=== PATIENT | male | born 1975 | race African-American/Black ===

== ENCOUNTER 2017-01-04 15:00 | Inpatient (IN) | payer OTHER ==
[~2017-01-04] VITALS: Ht 185.4 cm; Wt 67.1 kg
--- NOTE | ~2017-01-04 | HP ---
Unit #: [id number] #: [id number] Patient: MARIAJOSE STARKS [id number] [place] [address] [id number] MR#: [id number] NAME: MARIAJOSE STARKS ROOM: P183 Age: 41 Sex: M Admission Date: 01/04/2017 : 1975 Attending Physician: Robert Canales M.D. Admitting Physician: Robert Canales M.D. Primary Care Physician: Primary Care Physician No HISTORY AND PHYSICAL HISTORY OF PRESENT ILLNESS The patient is a 41-year-old male admitted to [facility] on 01/04/2017 for polysubstance abuse including alcohol, heroin and cocaine. PAST MEDICAL HISTORY Polysubstance use. PAST SURGICAL HISTORY Inguinal hernia. SOCIAL HISTORY He is self-employed as a contractor. He lives alone. He smokes a third pack of cigarettes a day and uses alcohol, cocaine and heroin. FAMILY MEDICAL HISTORY Noncontributory. ALLERGIES No known drug allergies. CURRENT MEDICATIONS Patient is not on any home medications. REVIEW OF SYSTEMS CONSTITUTIONAL: No fever or chills. HEENT: Denies any sore throat, ear pain or runny nose. CARDIOVASCULAR: Denies chest pain, irregular heart rhythm or palpitations. CHEST: Denies shortness of breath or cough. No hemoptysis. GASTROINTESTINAL: Denies nausea, vomiting, diarrhea or chronic constipation. ENDOCRINE: Denies history of increased thirst or urination. No recent significant weight loss or gain. GENITOURINARY: Denies dysuria, frequency, or hematuria. SKIN: Denies any rashes. HEMATOLOGIC: Denies history of increased bleeding or bruising. MUSCULOSKELETAL: Denies any hot, swollen joints. No generalized muscle pain. NEUROLOGIC: Denies problems with vision or speech. No frequent, severe headaches. No numbness, tingling or weakness in any extremities. Denies loss of bladder or bowel control. PHYSICAL EXAM GENERAL: He is awake, alert and oriented in no acute distress. Unit #: [id number] #: [id number] Patient: MARIAJOSE STARKS VITAL SIGNS: Temperature 98.4, heart rate 69, respiration 16, blood pressure 100/63. HEIGHT: 5'1". WEIGHT: 148 pounds. SKIN: Warm and dry without rash or lesion. HEENT: Normocephalic. TMs not viewed. Oral and nasal passages clear. Conjunctivae clear. PERRLA. EOMs intact. NECK: Supple without lymphadenopathy or thyromegaly. HEART: Regular rate and rhythm without murmur. LUNGS: Clear. ABDOMEN: Soft, nontender. : Not done. EXTREMITIES: No evidence of cyanosis, clubbing or edema. Moves all without focal deficit. NEUROLOGICAL: Grossly within normal limits. Cranial Nerves: II: Visual ponce are intact. III, IV AND : Extraocular movements are intact. Pupils are equal, round and reactive to light. V: Facial sensation is grossly normal. VII: Facial movements and expression are normal. VIII: Auditory acuity grossly intact. IX, X: Uvula is midline. Phonation is normal. XI: Patient shrugs shoulders and turns head normally. XII: Tongue protrudes in the midline. Sensory and Motor Function: Sensory and motor sensation is grossly normal. Motor: moves all extremities well. IMPRESSION 1. Psychiatric admission. 2. Polysubstance abuse. 3. Nicotine dependence. RECOMMENDATIONS Psychiatric per psychiatrist. MEDICAL: No contraindication to participate in facility activities. MEDICAL PROGNOSIS Good. MEDICAL CONDITION Stable. Dictated by... Emily Barragan/martin TD: 01/06/2017 01:53 JOB #: [id number] Unit #: [id number] #: [id number] Patient: MARIAJOSE STARKS HISTORY AND PHYSICAL Page 1 of 1 X VINAY MAGALLANES APRN HISTORY AND PHYSICAL
--- NOTE | ~2017-01-04 | PN ---
Unit #: [id number] #: [id number] Patient: MARIAJOSE MONTANA [id number] [facility] [address] [place] [address] [id number] I MR#: [id number] NAME: MARIAJOSE MONTANA ROOM: P183 Age: 41 Sex: M Admission Date: 01/04/2017 : 1975 Attending Physician: Robert Canales M.D. Admitting Physician: Robert Canales M.D. Primary Care Physician: Primary Care Physician Eli SHRESTHA NOTES DATE 01/06/2017 DISCUSSION Mr. Montana is a 41-year-old, white male with substance abuse and mood disorder who was seen today and chart was reviewed and case was discussed with the staff. He was seen to be anxious, withdrawn, unkempt, disheveled in distress and discomfort and has not been functioning very well. He has been meanwhile, taking the medications and tolerating them fairly well. MENTAL STATUS EXAM Middle-aged male who was casually dressed with fair personal hygiene, appears to be in no acute distress or discomfort. He was awake and alert on interaction with intact orientation. His mood was anxious with congruent affect. His speech was slow and restricted in content. He denies any suicidal or homicidal ideation. Also, denies any auditory or visual hallucinations. His insight and judgement remains slightly impaired. TREATMENT PLAN 1. We will continue him on his current medications and treatment protocol. We will monitor his response to the medication and make further adjustments as needed. 2. We will continue to follow up. Dictated by... Jonathan Carrizales/martin TD: 01/07/2017 05:09 JOB #: [id number] Unit #: [id number] #: [id number] Patient: MARIAJOSE MONTANA KECIA PROGRESS NOTES Page 1 of 1 X Robert Canales MD PROGRESS NOTE
--- NOTE | ~2017-01-04 | PN ---
Unit #: [id number] #: [id number] Patient: MARIAJOSE MONTANA [id number] [facility] [address] [place] [address] [id number] I MR#: [id number] NAME: MARIAJOSE MONTANA ROOM: 83 Age: 41 Sex: M Admission Date: 01/04/2017 : 1975 Attending Physician: Robert Canales M.D. Admitting Physician: Robert Canales M.D. Primary Care Physician: Primary Care Physician Eli MCDONNELL PROGRESS NOTES DATE January 08, 2017 DISCUSSION Mr. Montana is a 41-year-old male, who was seen today and chart was reviewed and the case was discussed with the staff. He has been anxious, withdrawn, but reports doing much better and has been calm and cooperative with the treatment recommendations. He has been taking the medications and tolerating them fairly well with no reported side effects. MENTAL STATUS EXAMINATION Young white male, who was casually dressed with fair personal hygiene and appears to be in no acute distress or discomfort. He was awake and alert on interaction with intact orientation. His mood is anxious and depressed with a congruent affect. His speech is slow and goal-directed. He denies any suicidal or homicidal ideations, and also denies any auditory or visual hallucinations. His insight and judgment remain slightly impaired. TREATMENT PLAN 1. We will continue him on his current medications and treatment protocol, and will monitor his response to the medications, and make further adjustments as needed. 2. We will continue to followup. Dictated by... Jonathan Carrizales/lee ann TD: 01/08/2017 11:07 JOB #: [id number] Unit #: [id number] #: [id number] Patient: MARIAJOSE MONTANA PROGRESS NOTES Page 1 of 1 X Robert Canales MD PROGRESS NOTE
--- NOTE | ~2017-01-04 | PA ---
Unit #: [id number] #: [id number] Patient: MARIAJOSE MONTANA [id number] [facility] [address] [place] [address] [id number] I MR#: [id number] NAME: MARIAJOSE MONTANA ROOM: P183 Age: 41 Sex: M Admission Date: 01/04/2017 : 1975 Date of Assessment: Attending Physician: Robert Canales M.D. Admitting Physician: Robert Canales M.D. Primary Care Physician: Primary Care Physician No PSYCHIATRIC ASSESSMENT DATE OF SERVICE 01/05/2017. IDENTIFYING DATA Mr. Montana is a 41-year-old , disabled, male who is a resident of [place], [place], and was self-referred to the hospital on a voluntary basis. CHIEF COMPLAINT "I'm here for detox services." HISTORY OF PRESENT ILLNESS Mr. Montana is a 41-year-old male with history of substance abuse and dependence, who came to the hospital stating that he wants to request detox services and for the past several months, he has been consuming three 12-ounce beers and has been using 0.5 g of heroin and snorting 0.5 g of cocaine every other day and reports that he needs inpatient treatment for detox and had a COWS of 14 upon presentation indicating significant withdrawal from opioids. He stated that he has had several years of clean and sobriety and now he has been decompensating. He does report increasing depression, anxiety, significant consequences because of his addiction and feelings of hopelessness and helplessness, and inability to function, however, he denies any suicidal ideations, intent, or plan. SUBSTANCE ABUSE HISTORY The patient reports history of alcohol, cocaine, opioids, and benzodiazepine and currently alcohol and opioids appear to be his drug of choice. PAST PSYCHIATRIC HISTORY The patient has had history of inpatient psychiatric treatment at [facility] in the past. Review of the medical records indicate currently he is not active in any treatment program, is not seeing a psychiatrist, not taking any psychotropic medications. PAST MEDICAL HISTORY No acute or chronic medical illnesses. ALLERGIES No known medication allergies. CURRENT MEDICATIONS Unit #: [id number] #: [id number] Patient: MARIAJOSE MONTANA None. PERSONAL AND SOCIAL HISTORY A 41-year-old male who reports that he is single, unemployed, and essentially homeless and has poor social support system. MENTAL STATUS EXAMINATION Young male who was casually dressed with fair personal hygiene, appears to be in no acute distress or discomfort. He was awake and alert on interaction with intact orientation to time, place, and person. His mood was anxious and depressed with a congruent affect. His speech was slow and restricted in content. His thought processes were disorganized with some looseness of associations and flight of ideas and denies any suicidal ideations. His insight and judgment remain significantly impaired. DIAGNOSTIC IMPRESSION Psychiatric: Opioid dependence, moderate and acute withdrawals; alcohol dependence, moderate and acute withdrawals; opioid-induced mood disorder. Medical: None. Stressors: Moderate psychosocial stressors. TREATMENT PLAN 1. The patient has presented with a history of substance abuse and mood disorder, and has been decompensating and will need inpatient hospitalization for detoxification, and safety, and stabilization. We will start him back on his home medications. We will adjust the medications and monitor response. 2. Supportive therapy was provided to the patient. 3. Safe, structured, and nourishing environment will be provided. ESTIMATED LENGTH OF STAY 4 to 5 days. ABILITY TO HELP SELF Limited. WILLINGNESS TO HELP SELF The patient appears to be willing to help self. STRENGTHS 1. Communicative. 2. Cooperative. PROBLEMS 1. Chronic dysphoric symptoms. 2. Chronic chemical dependency. 3. Poor social support system. DISCHARGE CRITERIA This will be contingent upon the patient's ability to show resolution of his depression and anxiety and his ability to go through detox without having any significant withdrawal symptoms and his ability to stay safe to himself, particularly after discharge from the hospital. Dictated by... Robert Canales M.D. Unit #: [id number] #: [id number] Patient: MARIAJOSE MONTANA IAA/modl TD: 01/05/2017 16:16 JOB #: [id number] PSYCHIATRIC ASSESSMENT Page 1 of 1 X Robert Canales MD PSYCHIATRIC ASSESSMENT
--- NOTE | ~2017-01-04 | DS ---
Unit #: [id number] #: [id number] Patient: MARIAJOSE MONTANA [id number] [facility] [place] [address] [id number] I MR#: [id number] NAME: MARIAJOSE MONTANA ROOM: P183 Age: 41 Sex: M Admission Date: 01/04/2017 : 1975 Discharge Date: 01/09/2017 Attending Physician: Robert Canales M.D. Primary Care Physician: Primary Care Physician No DISCHARGE SUMMARY IDENTIFYING DATA Mr. Montana is a 41-year-old disabled male, who is a resident of [place], [place], and was self-referred to the hospital on a voluntary basis. HISTORY OF PRESENT ILLNESS Please see initial psychiatric evaluation for details. PAST PSYCHIATRIC HISTORY Please see initial psychiatric evaluation for details. PAST MEDICAL HISTORY Please see initial psychiatric evaluation for details. HOSPITAL COURSE The patient was admitted to the Adult Chemical Dependence unit at [facility] and was oriented to the hospital environment. Routine p.r.n. medications were initiated and she was back on his home medications. His home medications were adjusted and he was closely monitored. He was taking the medications regularly and was tolerating them fairly well and he was able to come out of the detox without any withdrawal symptoms and was willing to continue treatment on outpatient basis and as such it was decided that he will be kept on his current medications and will be discharged home to continue treatment on outpatient basis. DISCHARGE DIAGNOSES Psychiatric: Rudolph I Opiate dependence, moderate, and acute withdrawal. Alcohol dependence, moderate, and acute withdrawal. Opiate-induced mood disorder. Rudolph II Rudolph III None. Rudolph IV Mild psychosocial stressors. Rudolph V DISCHARGE MEDICATIONS None. CONDITION AT DISCHARGE Stable. PROGNOSIS Fair. Unit #: [id number] #: [id number] Patient: MARIAJOSE MONTANA Dictated by... Jonathan Carrizales/lee ann TD: 01/09/2017 07:57 JOB #: [id number] DISCHARGE SUMMARY Page 1 of 1 X Robert Canales MD X DISCHARGE SUMMARY
--- NOTE | ~2017-01-04 | PN ---
Unit #: [id number] #: [id number] Patient: MARIAJOSE MONTANA [id number] [facility] [address] [place] [address] [id number] I MR#: [id number] NAME: MARIAJOSE MONTANA ROOM: P183 Age: 41 Sex: M Admission Date: 01/04/2017 : 1975 Attending Physician: Robert Canales M.D. Admitting Physician: Robert Canales M.D. Primary Care Physician: Primary Care Physician Eli MCDONNELL PROGRESS NOTES DATE 01/07/2017 DISCUSSION Mr. Montana is a 41-year-old male who was seen today and chart was reviewed and case was discussed with the staff. He has been anxious, withdrawn though has not shown any agitation, irritability and has been cooperative with treatment recommendations as he has been taking medications and tolerating them fairly well with no reported side effects. MENTAL STATUS EXAMINATION Middle-aged male who was casually dressed with fair personal hygiene and appears to be in no acute distress or discomfort. He was awake and alert on interaction with intact orientation. His mood was anxious with congruent affect. He denies any suicidal or homicidal ideations. His insight and judgement remains slightly impaired. TREATMENT PLAN 1. We will continue his current medications and treatment protocol. Will monitor his response to the medications and make further adjustments as needed. 2. Will continue to follow up. Dictated by... Robert Canales M.D. IAA/opal TD: 01/07/2017 22:26 JOB #: [id number] Unit #: [id number] #: [id number] Patient: MARIAJOSE MONTANA [facility] PROGRESS NOTES Page 1 of 1 X Roebrt Canales MD PROGRESS NOTE
[2017-01-06 09:43] LABS: BASOPHIL# 0.1 X10e3 (0-0.3); BASOPHIL% 0.8 % (0-2.5); EOSINOPHIL% 0.3 % (0.0-7.0); HEMATOCRIT 42.2 % (38.0-50.0); HEMOGLOBIN 14.2 gm/dL (13.0-16.0); LYMPHOCYTE# 2.1 X10e3 (1.0-3.5); LYMPHOCYTE% 25.6 % (17.0-45.0); MEAN CELL VOLUME 84.2 FL (83-96); MEAN CORPUSCULAR HEMOGLOBIN 28.3 PG (28-34); MEAN CORPUSCULAR HGB CONC 33.6 g/dL (30-36); MEAN PLATELET VOLUME 10.5 FL (6.5-11.5); MONOCYTE# 0.7 X10e3 (0-1.0); MONOCYTE% 8.1 % (3.0-12.0); NEUTROPHIL# 5.3 X10e3 (1.5-7.1); NEUTROPHIL% 65.2 % (40-75); PLATELET COUNT 188 X10e3 (140-420); RED BLOOD COUNT 5.02 X10e (3.90-5.60); RED CELL DISTRIBUTION WIDTH 13.2 % (11.0-15.5); WHITE BLOOD COUNT 8.2 X10e3 (4.0-10.5)
[2017-01-06 09:48] LABS: DIFF IND NO
[2017-01-06 10:08] LABS: ALBUMIN SERUM 4.2 g/dL (3.5-5.0); CALCIUM SERUM 9.6 mg/dL (8.4-10.2); GLOM FILT RATE Estimated 107.1 mL/min (>60); POTASSIUM 3.9 mmol/L (3.5-5.1); PROTEIN TOTAL SERUM 7.2 g/dL (6.0-8.3)
== END 2017-01-09 07:55 | DRG 897 ==
LOC: P1E 17:58
PROVIDERS: Psychiatry & Neurology Psychiatry
PROC: HZ2ZZZZ Detoxification Services for Substance Abuse Treatment (ICD-10-PCS; principal; 2017-01-04)
DX: F11.23 Opioid dependence with withdrawal (principal); F10.239 Alcohol dependence with withdrawal, unspecified; F11.24 Opioid dependence with opioid-induced mood disorder
CPT/HCPCS: 80053; 85025